=== PATIENT | male | born 1970 | race Caucasian/White ===

== ENCOUNTER 2020-08-09 15:45 | Emergency (ER) | payer BC, SELFPAY ==
--- NOTE | ~2020-08-09 | XR_ITS ---
XR ankle RT min 3V, XR foot RT min 3V 08/09/2020 17:09 (accession [id number]), 08/09/2020 17:10 (accession [id number]) INDICATION: Right ankle and foot pain after trauma PROCEDURE: 4 views right ankle and foot COMPARISON: No prior studies for comparison. FINDINGS: Fracture, dislocation or subluxation is not identified. There is moderate soft tissue swell ing overlying the mid and hindfoot. Lisfranc joint intact. No foreign bodies are identified. IMPRESSION: 1: No acute fracture. Reviewed, dictated and finalized at location A. PAINTER HELPER IMPRESSION: 1: No acute fracture. IMPRESSION: 1: No acute fracture.
[2020-08-09 16:19] VITALS: BP 133/90; PULSE 82; RESP 18; TEMP 36.6; O2SAT 100
--- NOTE | 2020-08-09 17:23 | ED.LOWEXIN ---
HPI - Extremity Injury (Lower) General Chief Complaint: Extremity Injury, Lower Stated Complaint: right ankle pain Time Seen by Provider: 08/09/20 17:13 History of Present Illness HPI Narrative: 49 yo male with no active medical problems presents to the ED with a foot injury. He reports that shortly before arrival here he had an approximately 2000 pound trailer fall onto his right foot. He has severe pain in the dorsum of the right foot. He did not attempt to bear weight. He does have an abrasion to the top of the foot. No weakness, numbness. Related Data Home Medications Medication Instructions Recorded Confirmed pantoprazole PO 08/09/20 Allergies Allergy/AdvReac Type Severity Reaction Status Date / Time No Known Allergies Allergy Verified 08/09/20 16:24 Review of Systems Review of Systems: All systems reviewed & are unremarkable except as noted in HPI and below Constitutional: Constitutional: Denies fever(s) and Denies weakness Cardiovascular: Cardiovascular: Denies chest pain Respiratory: Respiratory: Denies dyspnea Gastrointestinal: Gastrointestinal: Denies nausea and Denies vomiting Musculoskeletal: Musculoskeletal: Denies back pain Neurologic: Denies numbness and Denies weakness [facility] Past Medical History Medical History (Updated 08/09/20 @ 17:40 by Ramiro Armas MD) Healthy adult male Social History Social History Gender identity (if verbalized by the patient): Male Exam Const: General: healthy appearing, no acute distress and alert Orientation/consciousness: patient oriented x3 HENMT: Head: normal to inspection Resp: Effort & Inspection: normal respiratory effort Cardio: Other: 1+ right DP, 2+ right PT Skin: Other: minor abrasion to the dorsum of the right foot Neuro: General: patient oriented x3, moves all extremities and CN's II-XI intact bilaterally Speech: normal speech Other: distal motor and sensor intact Extrem: Other: Swelling to the dorsum of the right foot. No obvious deformity. Course Vital Signs Vital signs: Vital Signs Temperature 36.6 C 08/09/20 16:19 Pulse Rate 82 08/09/20 16:19 Respiratory Rate 18 08/09/20 16:19 Blood Pressure 133/90 08/09/20 16:19 Pulse Oximetry 100 08/09/20 16:19 Temperature 36.6 C 08/09/20 16:19 Pulse Rate 82 08/09/20 16:19 Respiratory Rate 18 08/09/20 16:19 Blood Pressure 133/90 08/09/20 16:19 Pulse Oximetry 100 08/09/20 16:19 MDM - Extremity Injury (Lower) MDM Narrative Medical decision making narrative: No fracture or dislocation on x-ray. Medical Records Attestation: I reviewed the patient's medical records. Imaging Data Radiologist's impression: ITS Impressions Ankle X-Ray 08/09/20 17:10 IMPRESSION: 1: No acute fracture. Foot X-Ray 08/09/20 17:10 IMPRESSION: 1: No acute fracture. Discharge Plan Discharge Clinical Impression: Contusion of foot Qualifiers: Encounter type: initial encounter Laterality: right Qualified Code(s): S90.31XA - Contusion of right foot, initial encounter Patient Disposition: Home, Self-Care Condition: Stable Instructions: Foot Contusion (ED) Prescriptions: No Action pantoprazole 40 mg tablet,delayed release (DR/EC) PO RF: 0 Follow-up/Referrals: Wes Leavitt MD [Physician] - PHYSICIAN,SERVER ENGINEER [Primary Care Provider] -
[2020-08-09] MEDS: HYDROcodone/acetaminophen (*CRX) 5-325 MG TABLET 1 TAB PO (17:33)
[2020-08-09] MEDS: IBUPROFEN 600 MG TABLET PO (17:33)
== END 2020-08-09 17:53 | disposition home or self-care (01) ==
PROVIDERS: Emergency Provider Emergency Medicine
DX: S90.31XA Contusion of right foot, initial encounter (principal); W20.8XXA Other cause of strike by thrown, projected or falling object, initial encounter
CPT/HCPCS: 73610; 73630; 99283; A9270